=== PATIENT | male | born 1985 | race Caucasian/White ===

== ENCOUNTER 2020-04-09 07:34 | Outpatient (CLI) | payer OTHER ==
--- NOTE | 2020-04-09 14:29 | RAD ---
XR Chest Pa Lat STANDARD HISTORY: Preoperative evaluation COMPARISON: None FINDINGS: The heart size is normal. The lungs are well expanded without focal areas of consolidation, pneumothorax or pleural effusions. IMPRESSION: No radiographic evidence of acute cardiopulmonary process.
[2020-04-09 16:20] LABS: Hemoglobin 16.7 g/dL (14.0-18.0); Mean Corpuscular HGB CONC 32.2 g/dL (32.0-36.0); Mean Platelet Volume 7.9 fL (7.4-10.4); Platelet Count 362 thou/uL (130-400); RBC Distribution Width 12.3 % (11.5-14.5); Red Blood Cell (RBC) Count 6.19 mill/uL (4.70-6.10); White Blood Cell (WBC) Count 5.9 thou/uL (4.8-10.8)
[2020-04-09 16:26] LABS: PTT 28.8 sec (22.9-36.1); Prothrombin Time 12.7 sec (12.0-14.7)
[2020-04-09 16:39] LABS: Anion Gap 12 mmol/L (10-20); BUN (Urea Nitrogen) 11 mg/dL (8.9-20.6); Calc. Creatinine Clearance 0 mL/min (70-130); Calcium 9.3 mg/dL (7.8-10.44); Carbon Dioxide 27 mmol/L (22-29); Chloride 105 mmol/L (98-107); Estimated GFR-MDRD Greater than 90; Glucose 95 mg/dL (70-105); Potassium 4.1 mmol/L (3.5-5.1); Sodium 140 mmol/L (136-145)
[2020-04-09 17:01] LABS: Bacteria/HPF None Seen HPF (None Seen); Bilirubin Negative (Negative); Blood, Urine Negative (Negative); Clarity Clear (Clear); Glucose, Urine (Dipstick) Normal (Negative); Ketone, Urine Trace mg/dL (Negative); Leukocyte Negative Leu/uL (Negative); Nitrite Negative (Negative); Protein, Urine (Dipstick) 20 mg/dL (Neg-Trace); RBC/HPF 0-3 HPF (0-3); Squamous Epithelial None Seen HPF (0-3); Urobilinogen Normal mg/dL (Less than 2); WBC/HPF None Seen HPF (0-3); pH, Urine 6.5 (5.0-9.0)
[2020-04-10 13:02] LABS: SARS-CoV-2 MS2 Positive; SARS-CoV-2 N Gene Negative; SARS-CoV-2 S Gene Negative; SARS-CoV-2 by NAA Not Detected (NotDetected); SARS-CoV-2 orf1ab Negative
== END 2020-04-09 07:35 | disposition home or self-care (01) ==
LOC: LABBT 07:34 → SCSRAD 07:35
PROVIDERS: ATTEND Urology
DX: Z01.818 Encounter for other preprocedural examination (principal); Z20.828 Contact with and (suspected) exposure to other viral communicable diseases; N50.89 Other specified disorders of the male genital organs
CPT/HCPCS: 71046; 80048; 81001; 85027; 85610; 85730; 87086; 87635; U0003

== ENCOUNTER 2020-04-26 13:27 | Outpatient (CLI) | payer OTHER ==
[~2020-04-26 13:27] MED LIST: Iopamidol-370 76% 500 ML 1 ML ONE
--- NOTE | 2020-04-26 14:30 | CT ---
CT OF THE CHEST, ABDOMEN AND PELVIS WITH IV CONTRAST INDICATION: History of nonseminomatous cancer of the left testicle status post left radical or get an y COMPARISON: Testicular ultrasound dated March 20, 2020 FINDINGS: CHEST: Lungs: Mild paraseptal emphysema seen involving both lung apices. No suspicious pulmonary nodule is i dentified. Pleural space: No effusion. Mediastinum: There is a persistent left-sided SVC. The SVC drains into the coronary sinus. No normal right sided SVC is evident. Axilla: No pathologically enlarged lymph nodes. ABDOMEN: Liver: No focal lesion. Gallbladder: Normal appearing. Pancreas: Normal. Adrenal glands: Normal. Spleen: Normal. Kidneys and ureters: Normal. No hydronephrosis. Vasculature: Normal. Lymph nodes:There are multiple enlarged lymph nodes within the periaortic and caval aortic retroperit crawford region. One of the largest seen within the left periaortic region measures 2.6 cm on image 75 series 2. No definite enlarged lymph nodes are seen along the course of the iliac vasculature. Free fluid in abdomen:No free fluid is evident. PELVIS: Small and large bowel: Normal Appendix:Normal Bladder: Normal. Rectal and perirectal soft tissues:Normal. Reproductive structures: Normal. Free fluid in pelvis: No free fluid is evident. Lymphadenopathy pelvis: No lymphadenopathy is evident. Osseous structures: No acute osseous abnormality. No destructive osteolytic or osteoblastic lesion i s identified. Soft tissues:There is postprocedural change of a left radical orchiectomy. No pathologically enlarged inguinal lymph nodes are evident. IMPRESSION: 1. Malignant lymphadenopathy of the periaortic and caval aortic retroperitoneal region. 2. Postprocedural change of a left radical orchiectomy.
== END 2020-04-26 13:28 | disposition home or self-care (01) ==
LOC: BICCT 13:27
PROVIDERS: ATTEND Urology
DX: C62.92 Malignant neoplasm of left testis, unspecified whether descended or undescended (principal); R59.0 Localized enlarged lymph nodes; Z90.79 Acquired absence of other genital organ(s)
CPT/HCPCS: 71260; 74177; Q9967

== ENCOUNTER 2020-05-20 08:41 | Day surgery (SDC) | payer OTHER, SELFPAY ==
[~2020-05-20 08:41] MED LIST changes: +Bleomycin Sulfate 30 UNIT in Sodium Chloride 0.9% 50 ML IVPB SCH; +CISPLATIN IV SCH; +ETOPOSIDE IVPB SCH; -Iopamidol-370 76% 500 ML 1 ML ONE; +MANNITOL IV SCH; +Palonosetron HCl 0.25 MG in Sodium Chloride 0.9% 50 ML IVPB SCH; +SODIUM CHLORIDE 0.9% IV SCH; +SODIUM CHLORIDE 0.9% IVPB SCH; +Sodium Chloride 0.9% 500 ML IV SCH
[2020-05-20] MEDS ORDERED: Sodium Chloride 0.9% 20 ML ONE ×2 (09:00→09:09)
[2020-05-20] MEDS ORDERED: Bleomycin Sulfate 30 UNIT in Sodium Chloride 0.9% 50 ML IVPB SCH (10:45)
[2020-05-20 11:47] VITALS: BP 127/81; TEMP 98.4
== END 2020-05-20 14:46 | disposition home or self-care (01) ==
LOC: ONC/OP 08:41
PROVIDERS: ATTEND Internal Medicine Hematology & Oncology
DX: Z51.11 Encounter for antineoplastic chemotherapy (principal); C62.12 Malignant neoplasm of descended left testis
CPT/HCPCS: 96361; 96367; 96375; 96413; 96417; J1100; J1453; J2150; J2469; J3480; J3490; J7030; J7050; J9040; J9060; J9181

== ENCOUNTER 2020-05-21 08:58 | Day surgery (SDC) | payer OTHER ==
[~2020-05-21 08:58] MED LIST changes: -Bleomycin Sulfate 30 UNIT in Sodium Chloride 0.9% 50 ML IVPB SCH; +Dexamethasone Sod Phosphate 10 MG, Ondansetron 2MG/ML MDV 15 MG in Sodium Chloride 0.9%... IVPB SCH; -ETOPOSIDE IVPB SCH; -SODIUM CHLORIDE 0.9% IVPB SCH
[2020-05-21] MEDS ORDERED: Sodium Chloride 0.9% 20 ML ONE ×2 (09:10→09:19)
[2020-05-21 09:17] VITALS: BP 106/63; TEMP 98
== END 2020-05-21 13:08 | disposition home or self-care (01) ==
LOC: ONC/OP 08:58
PROVIDERS: ATTEND Internal Medicine Hematology & Oncology
DX: Z51.11 Encounter for antineoplastic chemotherapy (principal); C62.12 Malignant neoplasm of descended left testis
CPT/HCPCS: 96361; 96367; 96375; 96413; 96417; J1100; J2150; J2405; J3480; J7030; J7050; J9060; J9181

== ENCOUNTER 2020-05-22 08:27 | Day surgery (SDC) | payer OTHER, SELFPAY ==
[~2020-05-22 08:27] MED LIST changes: -Palonosetron HCl 0.25 MG in Sodium Chloride 0.9% 50 ML IVPB SCH
[2020-05-22] MEDS ORDERED: Sodium Chloride 0.9% 20 ML ONE (08:31)
[2020-05-22 08:40] VITALS: BP 134/70
== END 2020-05-22 14:08 | disposition home or self-care (01) ==
LOC: ONC/OP 08:27
PROVIDERS: ATTEND Internal Medicine Hematology & Oncology
DX: Z51.11 Encounter for antineoplastic chemotherapy (principal); C62.12 Malignant neoplasm of descended left testis
CPT/HCPCS: 96361; 96366; 96367; 96375; 96413; 96417; J1100; J2150; J2405; J3480; J7030; J7050; J9060; J9181

== ENCOUNTER 2020-05-23 08:35 | Day surgery (SDC) | payer OTHER, SELFPAY ==
[2020-05-23 09:02] VITALS: BP 131/77
[2020-05-23] MEDS ORDERED: Sodium Chloride 0.9% 20 ML ONE (09:12)
== END 2020-05-23 13:49 | disposition home or self-care (01) ==
LOC: ONC/OP 08:35
PROVIDERS: ATTEND Internal Medicine Hematology & Oncology
DX: Z51.11 Encounter for antineoplastic chemotherapy (principal); C62.12 Malignant neoplasm of descended left testis
CPT/HCPCS: 96361; 96366; 96367; 96375; 96413; 96417; J1100; J2150; J2405; J3480; J7030; J7050; J9060; J9181

== ENCOUNTER 2020-05-24 08:31 | Day surgery (SDC) | payer OTHER, SELFPAY ==
[~2020-05-24 08:31] MED LIST changes: +Palonosetron HCl 0.25 MG in Sodium Chloride 0.9% 50 ML IVPB SCH
[2020-05-24 08:58] VITALS: BP 123/69; TEMP 98.2
== END 2020-05-24 12:51 | disposition home or self-care (01) ==
LOC: ONC/OP 08:31
PROVIDERS: ATTEND Internal Medicine Hematology & Oncology
DX: Z51.11 Encounter for antineoplastic chemotherapy (principal); C62.12 Malignant neoplasm of descended left testis
CPT/HCPCS: 96361; 96366; 96367; 96375; 96413; 96417; J1100; J2150; J2469; J3480; J7030; J7050; J9060; J9181

== ENCOUNTER 2020-05-27 08:40 | Day surgery (SDC) | payer SELFPAY ==
[~2020-05-27 08:40] MED LIST changes: +Bleomycin Sulfate 30 UNIT in Sodium Chloride 0.9% 50 ML IVPB SCH; -CISPLATIN IV SCH; -Dexamethasone Sod Phosphate 10 MG, Ondansetron 2MG/ML MDV 15 MG in Sodium Chloride 0.9%... IVPB SCH; -MANNITOL IV SCH; -Palonosetron HCl 0.25 MG in Sodium Chloride 0.9% 50 ML IVPB SCH; -SODIUM CHLORIDE 0.9% IV SCH; -Sodium Chloride 0.9% 500 ML IV SCH
[2020-05-27] MEDS ORDERED: Sodium Chloride 0.9% 20 ML ONE (08:46)
[2020-05-27 09:03] VITALS: BP 129/83; TEMP 98.7
== END 2020-05-27 10:10 | disposition home or self-care (01) ==
LOC: ONC/OP 08:40
PROVIDERS: ATTEND Internal Medicine Hematology & Oncology
DX: Z51.11 Encounter for antineoplastic chemotherapy (principal); C62.12 Malignant neoplasm of descended left testis
CPT/HCPCS: 96375; 96413; J1100; J9040

== ENCOUNTER 2020-06-03 08:34 | Day surgery (SDC) | payer SELFPAY ==
[2020-06-03] MEDS ORDERED: Sodium Chloride 0.9% 20 ML ONE (08:46)
== END 2020-06-03 10:53 | disposition home or self-care (01) ==
LOC: ONC/OP 08:34
PROVIDERS: ATTEND Internal Medicine Hematology & Oncology
DX: Z51.11 Encounter for antineoplastic chemotherapy (principal); C62.12 Malignant neoplasm of descended left testis
CPT/HCPCS: 96375; 96409; J1100; J9040

== ENCOUNTER 2020-06-10 09:07 | Day surgery (SDC) | payer SELFPAY ==
[~2020-06-10 09:07] MED LIST changes: +CISPLATIN IV SCH; +MANNITOL IV SCH; +Palonosetron HCl 0.25 MG in Sodium Chloride 0.9% 50 ML IVPB SCH; +SODIUM CHLORIDE 0.9% IV SCH; +Sodium Chloride 0.9% 500 ML IV SCH
[2020-06-10 09:25] VITALS: BP 129/83; TEMP 99
== END 2020-06-10 14:11 | disposition home or self-care (01) ==
LOC: ONC/OP 09:07
PROVIDERS: ATTEND Internal Medicine Hematology & Oncology
DX: Z51.11 Encounter for antineoplastic chemotherapy (principal); C62.12 Malignant neoplasm of descended left testis
CPT/HCPCS: 96361; 96367; 96375; 96411; 96413; 96417; J1100; J1453; J2150; J2469; J3480; J3490; J7030; J7050; J9040; J9060; J9181

== ENCOUNTER 2020-06-11 07:54 | Day surgery (SDC) | payer SELFPAY ==
[~2020-06-11 07:54] MED LIST changes: -Bleomycin Sulfate 30 UNIT in Sodium Chloride 0.9% 50 ML IVPB SCH; +Dexamethasone Sod Phosphate 10 MG, Ondansetron 2MG/ML MDV 15 MG in Sodium Chloride 0.9%... IVPB SCH; -Palonosetron HCl 0.25 MG in Sodium Chloride 0.9% 50 ML IVPB SCH
[2020-06-11] MEDS ORDERED: Sodium Chloride 0.9% 20 ML ONE (08:32)
[2020-06-11 08:36] VITALS: BP 114/67; TEMP 98.3
== END 2020-06-11 12:30 | disposition home or self-care (01) ==
LOC: ONC/OP 07:54
PROVIDERS: ATTEND Internal Medicine Hematology & Oncology
DX: Z51.11 Encounter for antineoplastic chemotherapy (principal); C62.12 Malignant neoplasm of descended left testis
CPT/HCPCS: 96361; 96367; 96375; 96413; 96417; J1100; J2150; J2405; J3480; J7030; J7050; J9060; J9181

== ENCOUNTER 2020-06-12 07:41 | Day surgery (SDC) | payer SELFPAY ==
[2020-06-12] MEDS ORDERED: Sodium Chloride 0.9% 20 ML ONE (08:55)
[2020-06-12 10:08] VITALS: BP 124/78; TEMP 98.6
== END 2020-06-12 13:00 | disposition home or self-care (01) ==
LOC: ONC/OP 07:41
PROVIDERS: ATTEND Internal Medicine Hematology & Oncology
DX: Z51.11 Encounter for antineoplastic chemotherapy (principal); C62.12 Malignant neoplasm of descended left testis
CPT/HCPCS: 96361; 96367; 96375; 96413; 96417; J1100; J2150; J2405; J3480; J7030; J7050; J9060; J9181

== ENCOUNTER 2020-06-13 07:44 | Day surgery (SDC) | payer SELFPAY ==
[2020-06-13 08:57] VITALS: BP 126/83
[2020-06-13] MEDS ORDERED: Sodium Chloride 0.9% 20 ML ONE (09:47)
== END 2020-06-13 13:05 | disposition home or self-care (01) ==
LOC: ONC/OP 07:44
PROVIDERS: ATTEND Internal Medicine Hematology & Oncology
DX: Z51.11 Encounter for antineoplastic chemotherapy (principal); C62.12 Malignant neoplasm of descended left testis
CPT/HCPCS: 96361; 96367; 96375; 96413; 96417; J1100; J2150; J2405; J3480; J7030; J7050; J9060; J9181

== ENCOUNTER 2020-06-14 07:46 | Day surgery (SDC) | payer SELFPAY ==
[~2020-06-14 07:46] MED LIST changes: -Dexamethasone Sod Phosphate 10 MG, Ondansetron 2MG/ML MDV 15 MG in Sodium Chloride 0.9%... IVPB SCH; +Palonosetron HCl 0.25 MG in Sodium Chloride 0.9% 50 ML IVPB SCH
[2020-06-14 08:43] VITALS: BP 119/78
== END 2020-06-14 14:00 | disposition home or self-care (01) ==
LOC: ONC/OP 07:46
PROVIDERS: ATTEND Internal Medicine Hematology & Oncology
DX: Z51.11 Encounter for antineoplastic chemotherapy (principal); C62.12 Malignant neoplasm of descended left testis
CPT/HCPCS: 96361; 96367; 96375; 96413; 96417; J1100; J2150; J2469; J3480; J7030; J7050; J9060; J9181

== ENCOUNTER 2020-06-15 19:12 | Inpatient (IN) | payer SELFPAY ==
[~2020-06-15 19:12] MED LIST changes: -CISPLATIN IV SCH; +Iopamidol-370 76% 500 ML 1 ML ONE; -MANNITOL IV SCH; -Palonosetron HCl 0.25 MG in Sodium Chloride 0.9% 50 ML IVPB SCH; -SODIUM CHLORIDE 0.9% IV SCH; -Sodium Chloride 0.9% 500 ML IV SCH
[2020-06-15 19:40] LABS: #Lymphocytes 1.1 thou/uL (1.20-3.40); #Neutrophils 4.9 thou/uL (1.40-6.50); %Basophils 0.4 % (0.0-1.0); %Eosinophils 0.2 % (0.0-10.0); %Lymphocytes 17.7 % (21.0-51.0); %Monocytes 0.2 % (0.0-10.0); %Neutrophils 81.6 % (42.0-75.0); Hemoglobin 16.7 g/dL (14.0-18.0); Mean Corpuscular HGB CONC 30.1 g/dL (32.0-36.0); Mean Corpuscular Hemoglobin 23.7 pg (27.0-31.0); Mean Corpuscular Volume 78.7 fL (78.0-98.0); Mean Platelet Volume 7.3 fL (7.4-10.4); Platelet Count 315 thou/uL (130-400); RBC Distribution Width 14.8 % (11.5-14.5); Red Blood Cell (RBC) Count 7.05 mill/uL (4.70-6.10)
[2020-06-15] MEDS ORDERED: Ondansetron PF 4 MG/2 ML Vial ONE (19:43)
--- NOTE | 2020-06-15 19:56 | RAD ---
CHEST ONE VIEW: 06/15/20 HISTORY: Pain. COMPARISON: 04/09/20. FINDINGS: Normal cardiac silhouette. Pulmonary vessels and hilum are normal. Costophrenic angles are clear. No consolidation or mass. No pneumothorax or acute osseous abnormalities. IMPRESSION: No acute cardiopulmonary process. POS: PPP
[2020-06-15 20:00] LABS: ALT (SGPT) 44 U/L (8-55); AST (SGOT) 39 U/L (5-34); Albumin 4.4 g/dL (3.5-5.0); Alkaline Phosphatase 90 U/L (40-110); Anion Gap 17 mmol/L (10-20); BUN (Urea Nitrogen) 21 mg/dL (8.9-20.6); Bilirubin, Total 0.4 mg/dL (0.2-1.2); Calc. Creatinine Clearance 0 mL/min (70-130); Calcium 9.3 mg/dL (7.8-10.44); Carbon Dioxide 23 mmol/L (22-29); Chloride 96 mmol/L (98-107); Estimated GFR-MDRD 73; Globulin 3.8 g/dL (2.4-3.5); Glucose 111 mg/dL (70-105); Potassium 3.7 mmol/L (3.5-5.1); Protein, Total 8.2 g/dL (6.0-8.3); Sodium 132 mmol/L (136-145)
[2020-06-15] MEDS ORDERED: Acetaminophen 500 MG TAB ONE (21:12)
--- NOTE | 2020-06-15 21:45 | CT ---
EXAM: CTA of the chest HISTORY: Difficulty breathing. History of testicular cancer on chemotherapy COMPARISON: 04/26/2020 TECHNIQUE: Multiple contiguous axial images were obtained a CTA of the chest with contrast per pulmon praveen embolism protocol. 3-D oblique MIP reformats and direct coronal reformats were performed. FINDINGS: HEART: Normal in size without focal cardiac abnormality. The patient has a left-sided superior vena c michelle. PULMONARY ARTERIES: Evaluation of the pulmonary arteries is limited secondary to streak artifact from high density contrast in the left-sided superior vena cava and extending through the coronary sinus into the right ventricle. Normal in caliber without large filling defects to suggest pulmonary emboli. MEDIASTINUM: No hilar or mediastinal lymphadenopathy. LUNGS: Peripheral groundglass attenuation is seen in the right lower lobe which is nonspecific but co uld represent an early infectious process. PLEURAL SPACE: No pleural effusion or pneumothorax. CHEST WALL SOFT TISSUES: Unremarkable VISUALIZED OSSEOUS STRUCTURES: No acute abnormality. VISUALIZED SUBDIAPHRAGMATIC STRUCTURES: Unremarkable IMPRESSION: 1. No evidence of pulmonary thromboembolism 2. Right lower lobe early infiltrate 3. Left-sided superior vena cava
[2020-06-15] MEDS ORDERED: cefTRIAXone\\ROCEPHIN 1 GM VIAL ONE (21:55)
[2020-06-15 22:27] LABS: Lactic Acid 1.7 mmol/L (0.5-2.2)
[2020-06-15] MEDS ORDERED: Communication Order-Pharmacy FS PRN (22:48)
[2020-06-15] MEDS ORDERED: Acetaminophen 325 MG TAB PO PRN (22:52)
[2020-06-15] MEDS ORDERED: Azithromycin 500 MG VIAL ONE (23:15)
--- NOTE | 2020-06-15 23:25 | PDOC.BPN ---
- Brief Progress Note Encounter Date: 06/15/20 [id number] HP
[2020-06-15 23:42] LABS: Bilirubin Negative (Negative); Blood, Urine Negative (Negative); Clarity Clear (Clear); Glucose, Urine (Dipstick) Normal (Negative); Ketone, Urine Negative (Negative); Leukocyte Negative Leu/uL (Negative); Nitrite Negative (Negative); Protein, Urine (Dipstick) 10 mg/dL (Neg-Trace); Specific Gravity, Urine 1.024 (1.002-1.036); Urobilinogen Normal mg/dL (Less than 2)
[2020-06-15 23:55] LABS: SARS-CoV-2 NAA Rapid Test DETECTED (NotDetected)
[2020-06-16] MEDS: Sodium Chloride 0.9% 1,000 ML IV SCH ×3 (01:21→23:32)
[2020-06-16] MEDS: Cefepime 1 GM in Sodium Chloride 0.9% 100 ML IVPB SCH ×3 (01:21→16:16)
[2020-06-16 03:16] VITALS: BMI 27.8
--- NOTE | 2020-06-16 03:46 | HP ---
CHIEF COMPLAINT: Shortness of breath, fever and chills. HISTORY OF PRESENT ILLNESS: Mr. Frye is a 35-year-old male with history of metastatic testicular cancer, on chemotherapy, presented to the emergency room with shortness of breath, fever, and chills for the last 24 hours. Last chemotherapy was yesterday. The patient noted to be tachycardic, but normotensive. Workup in the emergency room including CTA of the chest showed right lower lobe infiltrate, no evidence of pulmonary embolism. The patient had a sodium of 132, glucose 111, BUN is 21, creatinine 1.1. Lactic acid 2.2. Septic workup done in the ED. The patient is started on IV antibiotics. The patient is being admitted to hospital for further management. PAST MEDICAL HISTORY: Testicular cancer. PAST SURGICAL HISTORY: Left testicle removed. FAMILY HISTORY: Reviewed and noncontributory. SOCIAL HISTORY: Denies smoking, alcohol drinking, or drug abuse. HOME MEDICATIONS: Please see home medication reconciliation form for updated medication. ALLERGIES: NO KNOWN ALLERGIES. REVIEW OF SYSTEMS: Review of 14 systems negative except what is mentioned in history of present illness. PHYSICAL EXAMINATION: GENERAL: The patient is awake, alert, in mild distress. VITAL SIGNS: Blood pressure is 104/74, respiratory rate is 19, temperature 101.2, oxygen saturation is 99%. HEENT: Head is normocephalic, atraumatic. NECK: Supple. No JVD. CHEST: Respirations are mildly labored. Diminished air entry bilaterally. HEART: S1, S2. Regular, tachycardic. ABDOMEN: Soft, nontender. Bowel sounds present. NEUROLOGIC: Awake, alert, and oriented x3. No focal deficits. PSYCHIATRIC: Unable to assess. EXTREMITIES: No clubbing or cyanosis. GENITOURINARY: No suprapubic tenderness. No flank tenderness. LABORATORY DATA: As mentioned above in history of present illness. IMAGING STUDIES: As mentioned above in history of present illness. ASSESSMENT AND PLAN: 1. Pneumonia in an immunocompromised patient on chemotherapy. 2. Testicular cancer with metastasis. 3. Immunocompromised on chemotherapy. PLAN: 1. Admit. 2. Septic workup done in the ED. 3. IV antibiotics. 4. IV fluids. 5. Reconcile home medications. 6. DVT prophylaxis as appropriate. 7. Expected length of stay, 2 midnights or more. Job ID: [id number]
[2020-06-16 06:09] LABS: #Lymphocytes 0.7 thou/uL (1.20-3.40); %Eosinophils 0.2 % (0.0-10.0); %Lymphocytes 17.8 % (21.0-51.0); %Monocytes 0.3 % (0.0-10.0); %Neutrophils 81.6 % (42.0-75.0); Hemoglobin 15.8 g/dL (14.0-18.0); Mean Corpuscular HGB CONC 32.8 g/dL (32.0-36.0); Mean Corpuscular Hemoglobin 25.9 pg (27.0-31.0); Mean Corpuscular Volume 79.1 fL (78.0-98.0); Mean Platelet Volume 7.3 fL (7.4-10.4); Platelet Count 254 thou/uL (130-400); RBC Distribution Width 15.1 % (11.5-14.5); Red Blood Cell (RBC) Count 6.08 mill/uL (4.70-6.10); White Blood Cell (WBC) Count 3.7 thou/uL (4.8-10.8)
[2020-06-16 06:32] LABS: ALT (SGPT) 37 U/L (8-55); AST (SGOT) 31 U/L (5-34); Albumin 3.6 g/dL (3.5-5.0); Alkaline Phosphatase 70 U/L (40-110); Anion Gap 14 mmol/L (10-20); BUN (Urea Nitrogen) 18 mg/dL (8.9-20.6); Bilirubin, Total 0.4 mg/dL (0.2-1.2); Calc. Creatinine Clearance 117 mL/min (70-130); Calcium 8.3 mg/dL (7.8-10.44); Carbon Dioxide 21 mmol/L (22-29); Chloride 101 mmol/L (98-107); Estimated GFR-MDRD 88; Globulin 2.9 g/dL (2.4-3.5); Glucose 107 mg/dL (70-105); Potassium 3.5 mmol/L (3.5-5.1); Protein, Total 6.5 g/dL (6.0-8.3); Sodium 132 mmol/L (136-145)
[2020-06-16] MEDS: Enoxaparin Sodium 40 MG/0.4 ML SYRINGE SC SCH (07:43)
[2020-06-16] MEDS ORDERED: Vancomycin HCl 1 GM in Sodium Chloride 0.9% 250 ML 300 ML IVPB SCH (09:00)
[2020-06-16] MEDS ORDERED: Famotidine/PF 20 mg/2ml Vial SLOW IVP SCH (09:00)
--- NOTE | 2020-06-16 12:12 | PDOC.HOSPP ---
- Subjective Encounter Date: 06/16/20 Encounter Time: 12:10 Subjective: f/u for COVID PNA receiving Cefepime/Zithromax but remains on RA. Some coughing. Appetite ok. - Objective Vital Signs & Weight: Vital Signs (12 hours) Temp Pulse Resp BP Pulse Ox 06/16/20 08:00 98.9 F 86 18 128/73 96 06/16/20 04:00 98.6 F 79 16 101/66 98 06/16/20 01:00 97 06/16/20 00:45 98.6 F 79 16 102/68 97 Weight Weight 172 lb 12.8 oz I&O: 06/15/20 06/16/20 06/17/20 06:59 06:59 06:59 Intake Total 700 Output Total 500 Balance 200 Result Diagrams: 06/16/20 05:57 06/16/20 05:57 Additional Labs: Microbiology 06/15/20 21:09 Venous blood - Right Arm Blood Culture - Preliminary Specimen has been received and culture in progress. No Growth to date. 06/15/20 19:24 Venous blood - Left Arm Blood Culture - Preliminary Specimen has been received and culture in progress. No Growth to date. Laboratory Tests 06/15/20 06/15/20 06/15/20 19:24 19:24 19:24 WBC 6.0 Hgb 16.7 Plt Count 315 Neutrophils % 81.6 H Sodium 132 L Lactic Acid 2.2 SARS-CoV-2 Rap RNA(RT-PCR) 06/15/20 06/15/20 06/16/20 21:57 23:01 05:57 WBC Hgb Plt Count Neutrophils % 81.6 H Sodium Lactic Acid 1.7 SARS-CoV-2 Rap RNA(RT-PCR) DETECTED A* Radiology Reviewed by me: Yes (CTA chest - RLL infiltrate, no PE) Hospitalist ROS - Medication Medications: Active Medications Generic Name Dose Route Start Last Admin Trade Name Freq PRN Reason Stop Dose Admin Enoxaparin Sodium 40 mg 06/16/20 09:00 06/16/20 07:43 Enoxaparin Sodium 40 Mg/0.4 Ml Syringe SC 40 mg 0900 KALLIE Administration Famotidine 20 mg 06/16/20 09:00 06/16/20 07:43 Famotidine/Pf 20 Mg/2ml Vial SLOW IVP 20 mg Q12HR KALLIE Administration Cefepime HCl 1 gm/ Sodium 100 mls @ 200 mls/hr 06/15/20 23:59 06/16/20 07:42 Chloride IVPB 100 mls 0800,1600,2359 KALLIE Administration Sodium Chloride 1,000 mls @ 100 mls/hr 06/15/20 23:00 06/16/20 11:53 Normal Saline 0.9% IV 1,000 mls .Q10H KALLIE Administration Sodium Chloride 10 ml 06/16/20 09:00 06/16/20 07:42 Flush - Normal Saline 10 Ml Syringe IVF 10 ml Q12HR KALLIE Administration - Exam General Appearance: NAD, awake alert Eye: PERRL, anicteric sclera ENT: normocephalic atraumatic, no oropharyngeal lesions Neck: supple, symmetric, no JVD, no thyromegaly Heart: RRR, no gallops, no rubs, normal peripheral pulses Heart - other findings: S1, S2 Respiratory: no wheezes, no tachypnea Respiratory - other findings: diminished in bases, few rhonchi Gastrointestinal: soft, non-tender, non-distended, normal bowel sounds, no palpable masses Extremities: no cyanosis, no clubbing, no edema Skin: normal turgor, no lesions Neurological: cranial nerve grossly intact, no new deficit Musculoskeletal: normal tone, normal strength, no muscle wasting Psychiatric: normal affect, A&O x 3 Hosp A/P (1) Pneumonia due to COVID-19 virus Code(s): U07.1 - COVID-19; J12.89 - OTHER VIRAL PNEUMONIA Status: Acute Plan: Continue Cefepime/Zithromax/O2 PRN, add Decadron 10mg IV daily, add Vit C/Zinc (2) Hyponatremia Code(s): E87.1 - HYPO-OSMOLALITY AND HYPONATREMIA Status: Acute Plan: Likely due to metastatic testicular carcinoma (3) 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 Code(s): C62.90 - MALIG NEOPLASM OF UNSP TESTIS, UNSP DESCENDED OR UNDESCENDED; C77.2 - SECONDARY AND UNSP MALIGNANT NEOPLASM OF INTRA-ABD NODES Status: Chronic Plan: s/p chemotherapy, outpt follow up (4) Immunocompromised state due to drug therapy Code(s): D84.821 - IMMUNODEFICIENCY DUE TO DRUGS; Z79.899 - OTHER SINKER WINDER (CURRENT) DRUG THERAPY Status: Acute Plan: Secondary to chemotherapy - Plan continue antibiotics, 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
[2020-06-16] MEDS ORDERED: Dexamethasone 4 mg/ml Vial SLOW IVP SCH (12:15)
[2020-06-16] MEDS: Famotidine 20 MG TAB PO SCH (19:49)
[2020-06-16] MEDS ORDERED: FLU VACC QS2020-21(6MOS UP)/PF 60 MCG/0.5 ML SYRINGE IM ONE (21:00)
[2020-06-16] MEDS ORDERED: Prevnar 13-Val Conj/PF 0.5 ML SYRINGE IM ONE (21:00)
[2020-06-16] MEDS ORDERED: Azithromycin 500 MG in Sodium Chloride 0.9% 250 ML 250 ML IVPB SCH (23:00)
[2020-06-17] MEDS: Cefepime 1 GM in Sodium Chloride 0.9% 100 ML IVPB SCH ×2 (01:30→09:21)
[2020-06-17 06:51] LABS: Anion Gap 11 mmol/L (10-20); BUN (Urea Nitrogen) 14 mg/dL (8.9-20.6); Calc. Creatinine Clearance 135 mL/min (70-130); Calcium 8.2 mg/dL (7.8-10.44); Carbon Dioxide 25 mmol/L (22-29); Chloride 103 mmol/L (98-107); Estimated GFR-MDRD Greater than 90; Glucose 109 mg/dL (70-105); Sodium 135 mmol/L (136-145)
[2020-06-17] MEDS: Sodium Chloride 0.9% 1,000 ML IV SCH (08:25)
[2020-06-17] MEDS ORDERED: Zinc Sulfate 220 MG CAP PO SCH (09:00)
[2020-06-17] MEDS ORDERED: Dexamethasone 4 mg/ml Vial SLOW IVP SCH (09:00)
[2020-06-17] MEDS ORDERED: Ascorbic Acid 500 mg Chewable Tablet PO SCH (09:00)
[2020-06-17] MEDS: Enoxaparin Sodium 40 MG/0.4 ML SYRINGE SC SCH (09:22)
[2020-06-17] MEDS: Famotidine 20 MG TAB PO SCH (09:22)
[2020-06-17 18:01] VITALS: BP 122/75; TEMP 97.9
--- NOTE | 2020-06-17 22:27 | DIS ---
DATE OF ADMISSION: 06/15/2020 DATE OF DISCHARGE: 06/17/2020 DISCHARGE DIAGNOSES: 1. Pneumonia secondarily to COVID-19 virus. 2. Hyponatremia, improved. 3. Metastatic testicular carcinoma. 4. Immunocompromised state due to chemotherapy. CONSULTATIONS: None. PERTINENT LABORATORY AND X-RAY FINDINGS: Sodium ranged between 132 to 135, lactic acid level ranged between 1.7 to 2.2. AST ranged between 31 to 39. ALT ranged between 37 to 44. CBC showed a white blood cell count ranging between 3.7 to 6.0. COVID-19 PCR detected on 06/15/2020. Blood cultures x2 dated 06/15/2020, showed no growth to date. Urine culture dated 06/15/2020, showed no growth at 12 hours. Portable chest x-ray dated 06/15/2020, showed no acute cardiopulmonary process. CT angiogram of the chest dated 06/15/2020, showed no evidence for pulmonary embolus. Right lower lobe infiltrate noted. HOSPITAL COURSE: The patient was initially admitted after presenting with increased shortness of breath, fever, chills, and chest imaging showing right lower lobe infiltrate. The patient was also noted positive for COVID-19 and placed on isolation procedures. The patient's history is significant for an immunocompromised state in the context of ongoing chemotherapy for metastatic testicular carcinoma. The patient received broad-spectrum IV antibiotic therapy to include azithromycin and cefepime as well as IV Decadron. The patient required no oxygen supplementation and maintain O2 saturations greater than 96% on room air. The patient had no respiratory compromise observed during the hospital course. The patient was clinically stable, tolerating regular oral intake with stable vital signs and no evidence of documented fever. I have examined the patient at the time of discharge and discussed followup instructions. The patient verbalizes understanding and agreement, ready for discharge on 06/17/2020. DISCHARGE MEDICATIONS: 1. Azithromycin 250 mg p.o. daily x10 days. 2. Dexamethasone 6 mg p.o. daily x10 days. 3. Vitamin C 1000 mg p.o. daily. 4. Zinc sulfate 220 mg p.o. daily. FOLLOWUP: The patient may follow up with his primary oncologist, Dr. Kathryn Velasquez after discharge. CONDITION ON DISCHARGE: Stable. ACTIVITY: Ad-travis. DIET: Regular. CODE STATUS: Full. DISPOSITION: To home on 06/17/2020. TIME SPENT: Total time preparing and coordinating discharge is 35 minutes. Job ID: [id number]
--- NOTE | 2020-06-22 15:27 | EKG ---
Test Reason : Blood Pressure : / mmHG Vent. Rate : 100 BPM Atrial Rate : 100 BPM P-R Int : 102 ms QRS Dur : 070 ms QT Int : 300 ms P-R-T Axes : -14 036 048 degrees QTc Int : 387 ms Sinus tachycardia with short FL Otherwise normal ECG #1 Confirmed by MOHAMUD YING, ARTHUR Solomon ([id number]), newspaper editor managing EMMIE CHASE ([id number]) on 06/22/2020 3:26:42 PM Referred By: Confirmed By:ARTHUR MALLORY MD
--- NOTE | 2020-06-22 15:27 | EKG ---
Test Reason : Blood Pressure : / mmHG Vent. Rate : 075 BPM Atrial Rate : 075 BPM P-R Int : 110 ms QRS Dur : 070 ms QT Int : 332 ms P-R-T Axes : -14 056 059 degrees QTc Int : 370 ms Sinus rhythm with short NV Otherwise normal ECG #2 Confirmed by MOHAMUD YING, ARTHUR Solomon ([id number]), loan expeditor EMMIE CHASE ([id number]) on 06/22/2020 3:26:47 PM Referred By: Confirmed By:ARTHUR MALLORY MD
== END 2020-06-17 18:39 | disposition home or self-care (01) | DRG 177 ==
LOC: ERS 19:12 → T4-A 22:01
PROVIDERS: ADMIT Internal Medicine; ATTEND Family Medicine
PROC: 8E0ZXY6 Isolation (ICD-10-PCS; principal; 2020-06-15)
DX: U07.1 COVID-19 (principal); J12.89 Other viral pneumonia; E87.1 Hypo-osmolality and hyponatremia; D84.821 Immunodeficiency due to drugs; C77.2 Secondary and unspecified malignant neoplasm of intra-abdominal lymph nodes; C62.90 Malignant neoplasm of unspecified testis, unspecified whether descended or undescended; Z79.899 Other long term (current) drug therapy; T45.1X5A Adverse effect of antineoplastic and immunosuppressive drugs, initial encounter
CPT/HCPCS: 36415; 71045; 71275; 80048; 80053; 81003; 83605; 84484; 85025; 87040; 87086; 93005; 96365; 96367; 96375; J0456; J0692; J0696; J1100; J1650; J2405; J3490; J7050; Q9967; S0028; U0002

== ENCOUNTER 2020-07-01 08:54 | Day surgery (SDC) | payer SELFPAY ==
[2020-07-01] MEDS ORDERED: Sodium Chloride 0.9% 20 ML ONE (09:12)
[2020-07-01] MEDS ORDERED: CISPLATIN IV SCH (09:15)
[2020-07-01] MEDS ORDERED: MANNITOL IV SCH (09:15)
[2020-07-01] MEDS ORDERED: SODIUM CHLORIDE 0.9% IV SCH (09:15)
[2020-07-01] MEDS ORDERED: Fosaprepitant Dimeglumine 150 MG in Sodium Chloride 0.9% 250 ML 150 ML IVPB SCH (09:15)
[2020-07-01] MEDS ORDERED: Palonosetron HCl 0.25 MG in Sodium Chloride 0.9% 50 ML IVPB SCH (09:15)
[2020-07-01] MEDS ORDERED: Dexamethasone 10 MG in Sodium Chloride 0.9% 50 ML IVPB SCH (09:15)
[2020-07-01] MEDS ORDERED: SODIUM CHLORIDE 0.9% IVPB SCH (09:30)
[2020-07-01] MEDS ORDERED: BLEOMYCIN SULFATE IVPB SCH (09:30)
[2020-07-01 09:37] VITALS: BP 123/71; TEMP 98.6
== END 2020-07-01 15:33 | disposition home or self-care (01) ==
LOC: ONC/OP 08:54
PROVIDERS: ATTEND Internal Medicine Hematology & Oncology
DX: Z51.11 Encounter for antineoplastic chemotherapy (principal); C62.12 Malignant neoplasm of descended left testis
CPT/HCPCS: 96361; 96367; 96375; 96411; 96413; 96417; J1100; J1453; J2150; J2469; J3490; J7030; J7050; J9040; J9060; J9181

== ENCOUNTER 2020-07-02 07:52 | Day surgery (SDC) | payer SELFPAY ==
[~2020-07-02 07:52] MED LIST changes: +CISPLATIN IV SCH; +Dexamethasone Sod Phosphate 10 MG, Ondansetron 2MG/ML MDV 15 MG in Sodium Chloride 0.9%... IVPB SCH; -Iopamidol-370 76% 500 ML 1 ML ONE; +MANNITOL IV SCH; +SODIUM CHLORIDE 0.9% IV SCH; +Sodium Chloride 0.9% 500 ML IV SCH
[2020-07-02] MEDS ORDERED: Sodium Chloride 0.9% 500 ML IV SCH (08:00)
[2020-07-02 08:42] VITALS: BP 115/64; TEMP 98.6
[2020-07-02] MEDS ORDERED: Sodium Chloride 0.9% 20 ML ONE (08:46)
== END 2020-07-02 12:34 | disposition home or self-care (01) ==
LOC: ONC/OP 07:52
PROVIDERS: ATTEND Internal Medicine Hematology & Oncology
DX: Z51.11 Encounter for antineoplastic chemotherapy (principal); C62.12 Malignant neoplasm of descended left testis
CPT/HCPCS: 96361; 96367; 96375; 96413; 96417; J1100; J2150; J2405; J3480; J7030; J7050; J9060; J9181

== ENCOUNTER 2020-07-03 07:48 | Day surgery (SDC) | payer SELFPAY ==
[2020-07-03] MEDS ORDERED: CISPLATIN IV SCH ×2 (08:30→09:15)
[2020-07-03] MEDS ORDERED: Dexamethasone 10 MG, Ondansetron 2MG/ML MDV 15 MG in Sodium Chloride 0.9% 50 ML IVPB SCH (08:30)
[2020-07-03] MEDS ORDERED: manNITOL 12.5 GM in Sodium Chloride 0.9% 50 ML IV SCH (08:30)
[2020-07-03] MEDS ORDERED: SODIUM CHLORIDE 0.9% IVPB SCH (08:30)
[2020-07-03] MEDS ORDERED: ETOPOSIDE IVPB SCH (08:30)
[2020-07-03] MEDS ORDERED: SODIUM CHLORIDE 0.9% IV SCH ×2 (08:30→09:15)
[2020-07-03] MEDS ORDERED: Dexamethasone Sod Phosphate 10 MG, Ondansetron 2MG/ML MDV 15 MG in Sodium Chloride 0.9%... IVPB SCH (09:00)
[2020-07-03] MEDS ORDERED: Sodium Chloride 0.9% 500 ML IV SCH ×2 (09:00→09:45)
[2020-07-03] MEDS ORDERED: MANNITOL IV SCH (09:15)
[2020-07-03] MEDS ORDERED: Sodium Chloride 0.9% 20 ML ONE (10:25)
== END 2020-07-03 13:43 | disposition home or self-care (01) ==
LOC: ONC/OP 07:48
PROVIDERS: ATTEND Internal Medicine Hematology & Oncology
DX: Z51.11 Encounter for antineoplastic chemotherapy (principal); C62.12 Malignant neoplasm of descended left testis
CPT/HCPCS: 96361; 96367; 96375; 96413; 96417; J1100; J2150; J2405; J3480; J7030; J7050; J9060; J9181

== ENCOUNTER 2020-07-04 07:43 | Day surgery (SDC) | payer SELFPAY ==
[2020-07-04] MEDS ORDERED: Sodium Chloride 0.9% 500 ML IV SCH ×2 (07:45)
[2020-07-04] MEDS ORDERED: Sodium Chloride 0.9% 20 ML ONE (08:52)
[2020-07-04 09:15] VITALS: BP 122/62; TEMP 98.5
== END 2020-07-04 12:39 | disposition home or self-care (01) ==
LOC: ONC/OP 07:43
PROVIDERS: ATTEND Internal Medicine Hematology & Oncology
DX: Z51.11 Encounter for antineoplastic chemotherapy (principal); C62.12 Malignant neoplasm of descended left testis
CPT/HCPCS: 96361; 96367; 96375; 96413; 96417; J1100; J2150; J2405; J3480; J7030; J7050; J9060; J9181

== ENCOUNTER 2020-07-05 07:46 | Day surgery (SDC) | payer OTHER, SELFPAY ==
[~2020-07-05 07:46] MED LIST changes: +PALONOSETRON HCL 0.05 MG/ML 5 ML VIAL IVP SCH; +Palonosetron HCl 0.25 MG in Sodium Chloride 0.9% 50 ML IVPB SCH
[2020-07-05 10:35] VITALS: BP 107/59; TEMP 98.4
== END 2020-07-05 13:10 | disposition home or self-care (01) ==
LOC: ONC/OP 07:46
PROVIDERS: ATTEND Internal Medicine Hematology & Oncology
DX: Z51.11 Encounter for antineoplastic chemotherapy (principal); C62.12 Malignant neoplasm of descended left testis
CPT/HCPCS: 96361; 96366; 96375; 96413; 96417; J1100; J2150; J2469; J3480; J7030; J7050; J9060; J9181

== ENCOUNTER 2020-07-08 09:39 | Day surgery (SDC) | payer SELFPAY, OTHER ==
[2020-07-08 09:51] VITALS: BP 99/63
[2020-07-08] MEDS ORDERED: Sodium Chloride 0.9% 20 ML ONE (09:55)
== END 2020-07-08 11:01 | disposition home or self-care (01) ==
LOC: ONC/OP 09:39
PROVIDERS: ATTEND Internal Medicine Hematology & Oncology
DX: Z51.11 Encounter for antineoplastic chemotherapy (principal); C62.12 Malignant neoplasm of descended left testis
CPT/HCPCS: 96375; 96409; J1100; J9040

== ENCOUNTER 2020-07-15 08:47 | Day surgery (SDC) | payer OTHER, SELFPAY ==
[2020-07-15] MEDS ORDERED: Sodium Chloride 0.9% 20 ML ONE (08:52)
[2020-07-15 09:07] VITALS: BP 119/76; TEMP 98.6
== END 2020-07-15 10:26 | disposition home or self-care (01) ==
LOC: ONC/OP 08:47
PROVIDERS: ATTEND Internal Medicine Hematology & Oncology
DX: Z51.11 Encounter for antineoplastic chemotherapy (principal); C62.12 Malignant neoplasm of descended left testis
CPT/HCPCS: 96375; 96409; J1100; J9040

== ENCOUNTER 2020-07-22 08:51 | Day surgery (SDC) | payer SELFPAY ==
[~2020-07-22 08:51] MED LIST changes: -Dexamethasone Sod Phosphate 10 MG, Ondansetron 2MG/ML MDV 15 MG in Sodium Chloride 0.9%... IVPB SCH; -Palonosetron HCl 0.25 MG in Sodium Chloride 0.9% 50 ML IVPB SCH
[2020-07-22] MEDS ORDERED: Sodium Chloride 0.9% 20 ML ONE (09:06)
[2020-07-22 10:03] VITALS: BP 120/70; TEMP 98.5
== END 2020-07-22 15:53 | disposition home or self-care (01) ==
LOC: ONC/OP 08:51
PROVIDERS: ATTEND Internal Medicine Hematology & Oncology
DX: Z51.11 Encounter for antineoplastic chemotherapy (principal); C62.12 Malignant neoplasm of descended left testis
CPT/HCPCS: 96361; 96367; 96375; 96411; 96413; 96417; J1100; J1453; J2150; J2469; J3480; J3490; J7030; J7050; J9040; J9060; J9181

== ENCOUNTER 2020-07-23 08:50 | Day surgery (SDC) | payer SELFPAY ==
[~2020-07-23 08:50] MED LIST changes: +Dexamethasone Sod Phosphate 10 MG, Ondansetron 2MG/ML MDV 15 MG in Sodium Chloride 0.9%... IVPB SCH; -PALONOSETRON HCL 0.05 MG/ML 5 ML VIAL IVP SCH
[2020-07-23 09:22] VITALS: BP 126/71; TEMP 97.9
== END 2020-07-23 13:59 | disposition home or self-care (01) ==
LOC: ONC/OP 08:50
PROVIDERS: ATTEND Internal Medicine Hematology & Oncology
DX: Z51.11 Encounter for antineoplastic chemotherapy (principal); C62.12 Malignant neoplasm of descended left testis
CPT/HCPCS: 96361; 96367; 96375; 96411; 96413; 96417; J1100; J2150; J2405; J3480; J7030; J7050; J9040; J9060; J9181

== ENCOUNTER 2020-07-24 10:15 | Day surgery (SDC) | payer SELFPAY ==
[2020-07-24 11:42] VITALS: BP 150/69; TEMP 97.8
== END 2020-07-24 15:01 | disposition home or self-care (01) ==
LOC: ONC/OP 10:15
PROVIDERS: ATTEND Internal Medicine Hematology & Oncology
DX: Z51.11 Encounter for antineoplastic chemotherapy (principal); C62.12 Malignant neoplasm of descended left testis
CPT/HCPCS: 96361; 96367; 96375; 96413; 96417; J1100; J2150; J2405; J3480; J7030; J7050; J9060; J9181

== ENCOUNTER → 2020-07-29 | Day surgery (SDC) | payer SELFPAY ==
[~2020-07-29] MED LIST changes: +Sodium Chloride 0.9% 20 ML ONE
[2020-07-29 10:44] VITALS: BP 111/60; TEMP 98.1
== END ==
LOC: ONC/OP 09:02
PROVIDERS: ATTEND Internal Medicine Hematology & Oncology
DX: Z51.11 Encounter for antineoplastic chemotherapy (principal); C62.12 Malignant neoplasm of descended left testis
CPT/HCPCS: 96361; 96367; 96375; 96413; 96417; J1100; J2150; J2405; J7030; J7050; J9060; J9181

== ENCOUNTER 2020-07-30 08:52 | Day surgery (SDC) | payer SELFPAY ==
[~2020-07-30 08:52] MED LIST changes: +Bleomycin Sulfate 30 UNIT in Sodium Chloride 0.9% 50 ML IVPB SCH; -Dexamethasone Sod Phosphate 10 MG, Ondansetron 2MG/ML MDV 15 MG in Sodium Chloride 0.9%... IVPB SCH; +PALONOSETRON HCL 0.05 MG/ML 5 ML VIAL IVP SCH; +Palonosetron HCl 0.25 MG in Sodium Chloride 0.9% 50 ML IVPB SCH; -Sodium Chloride 0.9% 20 ML ONE
[2020-07-30] MEDS ORDERED: Sodium Chloride 0.9% 20 ML ONE (08:56)
[2020-07-30 10:39] VITALS: BP 123/64
== END 2020-07-30 16:52 | disposition home or self-care (01) ==
LOC: ONC/OP 08:52
PROVIDERS: ATTEND Internal Medicine Hematology & Oncology
DX: Z51.11 Encounter for antineoplastic chemotherapy (principal); C62.12 Malignant neoplasm of descended left testis
CPT/HCPCS: 96361; 96367; 96375; 96411; 96413; 96417; J1100; J2150; J2469; J3480; J7030; J7050; J9040; J9060; J9181

== ENCOUNTER 2020-08-06 09:27 | Day surgery (SDC) | payer SELFPAY ==
[~2020-08-06 09:27] MED LIST changes: -CISPLATIN IV SCH; -MANNITOL IV SCH; -PALONOSETRON HCL 0.05 MG/ML 5 ML VIAL IVP SCH; -Palonosetron HCl 0.25 MG in Sodium Chloride 0.9% 50 ML IVPB SCH; -SODIUM CHLORIDE 0.9% IV SCH; -Sodium Chloride 0.9% 500 ML IV SCH
[2020-08-06] MEDS ORDERED: Sodium Chloride 0.9% 20 ML ONE (09:42)
[2020-08-06 10:09] VITALS: BP 108/75; TEMP 98.2
== END 2020-08-06 11:38 | disposition home or self-care (01) ==
LOC: ONC/OP 09:27
PROVIDERS: ATTEND Internal Medicine Hematology & Oncology
DX: Z51.11 Encounter for antineoplastic chemotherapy (principal); C62.12 Malignant neoplasm of descended left testis
CPT/HCPCS: 96375; 96409; J1100; J9040

== ENCOUNTER 2020-08-23 08:37 | Outpatient (CLI) | payer OTHER, SELFPAY ==
--- NOTE | 2020-08-23 09:34 | CT ---
EXAM: CT Abdomen Pelvis W Con PROVIDED CLINICAL HISTORY: Testicular cancer COMPARISON: 04/26/2020 CT abdomen and pelvis 06/15/2020 CT angiogram chest FINDINGS: There is peripheral wedge-shaped consolidation present at the posterior right lung base in the region of previous parenchymal abnormality on CT angiogram, presumably reflecting pulmonary infarct. There is no evidence for a pulmonary nodule. The liver, spleen, pancreas, kidneys and adrenal glands demonstrate an unremarkable CT appearance. There is been marked interval reduction in the degree of retroperitoneal lymph node enlargement. The largest left para-aortic lymph node measures about 11 mm in short axis on the current study is compared to about 2.6 cm on prior. No additional enlarged lymph node is evident. No bowel dilatation, inflammatory fat stranding or free fluid apparent. The osseous structures demonstrate no concerning lytic or blastic lesions. IMPRESSION: 1. Interval marked improvement in retroperitoneal lymph node enlargement. 2. Consolidation at the right lung base has an appearance typical for pulmonary infarction. Correlate with concerns for pneumonia.
[2020-08-23] MEDS ORDERED: Iopamidol-370 76% 500 ML 1 ML ONE (14:54)
== END 2020-08-23 08:38 | disposition home or self-care (01) ==
LOC: BICCT 08:37
PROVIDERS: ATTEND Internal Medicine Hematology & Oncology
DX: C62.12 Malignant neoplasm of descended left testis (principal); R59.0 Localized enlarged lymph nodes
CPT/HCPCS: 74177; Q9967

== ENCOUNTER 2020-10-04 09:04 | Outpatient (CLI) | payer OTHER, SELFPAY ==
[2020-10-04] MEDS ORDERED: Iopamidol-370 76% 500 ML 1 ML ONE (11:50)
== END 2020-10-04 09:05 | disposition home or self-care (01) ==
LOC: BICCT 09:04
PROVIDERS: ATTEND Internal Medicine Hematology & Oncology
DX: C62.12 Malignant neoplasm of descended left testis (principal)
CPT/HCPCS: 74177; Q9967

== ENCOUNTER 2021-01-31 07:26 | Outpatient (CLI) | payer OTHER | END 2021-01-31 07:27 | disposition home or self-care (01) | LOC: BICCT 07:26 | PROVIDERS: ATTEND Internal Medicine Hematology & Oncology | DX: C62.12 Malignant neoplasm of descended left testis (principal); J98.4 Other disorders of lung | CPT/HCPCS: 74177 ==